=== PATIENT | male | born 1945 | race Two or more races ===

== ENCOUNTER 2017-09-04 10:05 | Emergency (ER) | payer OTHER ==
[~2017-09-04] VITALS: Ht 167.6 cm; Wt 81.6 kg
[2017-09-04 10:19] VITALS: BP 123/73
[2017-09-04] MEDS ORDERED: LIDOCAINE 1% (LOCAL ANESTH.) PF 5ml SDV ONE (10:48)
[2017-09-04] MEDS ORDERED: LIDOCAINE 1% (LOCAL ANESTH.) PF 5ml SDV IJ ONE (11:00)
[2017-09-04] MEDS ORDERED: HYDROcodone-ACET 10/325MG TAB PO ONE (11:15)
[2017-09-04] MEDS ORDERED: TETANUS-DIPTH-ACEL PERTUSSIS 0.5ML SYRG IM ONE (11:15)
[2017-09-04] MEDS ORDERED: cefTRIAXone SOD 1,000 MG VL IM ONE (11:15)
== END 2017-09-04 12:04 | disposition home or self-care (01) ==
LOC: ER 10:10
DX: S61.213A Laceration without foreign body of left middle finger without damage to nail, initial encounter (principal); S61.215A Laceration without foreign body of left ring finger without damage to nail, initial encounter; S61.214A Laceration without foreign body of right ring finger without damage to nail, initial encounter; S61.216A Laceration without foreign body of right little finger without damage to nail, initial encounter; E11.9 Type 2 diabetes mellitus without complications; I10 Essential (primary) hypertension; E78.5 Hyperlipidemia, unspecified; W54.0XXA Bitten by dog, initial encounter; Y93.89 Activity, other specified; Y99.8 Other external cause status; Y92.89 Other specified places as the place of occurrence of the external cause
CPT/HCPCS: 12004; 90471; 90715; 96372; 99284; J0696